=== PATIENT | female | born 1985 | race Caucasian/White ===

== ENCOUNTER 2019-08-27 05:55 | Inpatient (IN) | payer OTHER ==
[2019-08-27 06:45] LABS: BASO % 0.9 % (0-2.0); HEMATOCRIT 29.7 % (32.4-45.2); HEMOGLOBIN 9.7 GM/dL (10.7-15.3); LYMPH % 11.1 % (8-40); MCH 25.6 pg (25.7-33.7); MCHC 32.7 g/dl (32.0-36.0); MEAN CELL VOLUME 78.4 fl (80-96); MEAN PLT VOLUME 8.6 fl (7.5-11.1); MONO % 7.1 % (3.8-10.2); NEUT % 78.9 % (42.8-82.8); PLATELET COUNT 291 K/MM3 (134-434); RBC 3.78 M/mm3 (3.60-5.2); RDW 14.7 % (11.6-15.6); WHITE BLOOD COUNT 12.8 K/mm3 (4.0-10.0)
[2019-08-27 06:48] VITALS: BMI 34.3
[2019-08-27 06:59] LABS: INR 0.87 (0.83-1.09); PROTHROMBIN TIME (PATIENT) 10.3 SEC (9.7-13.0)
[2019-08-27] MEDS ORDERED: ELECTROLYTE-148 SOLN 500 ML IV ONE (07:00)
[2019-08-27] MEDS ORDERED: CITRIC ACID/SODIUM CITRATE 30 ML UNIT-DOSE CUP PO ONE (07:00)
[2019-08-27 07:02] LABS: ACTIVATED PTT 26.3 SECONDS (25.2-36.5)
[2019-08-27 07:21] LABS: BLOOD UREA NITROGEN 7.2 mg/dL (7-18); CALCIUM 8.7 mg/dL (8.5-10.1); CREATININE 0.5 mg/dL (0.55-1.3); POTASSIUM 4.4 mmol/L (3.5-5.1)
[2019-08-27] MEDS ORDERED: ELECTROLYTE-148 SOLN 1,000 ML IV SCH (08:00)
[2019-08-27] MEDS ORDERED: morphine SULFATE/PF 0.5 MG/ML (2cc Syringe - QUVA) ONE (08:18)
[2019-08-27] MEDS ORDERED: IBUPROFEN 600 MG TABLET (FP) PO PRN (08:41)
[2019-08-27] MEDS ORDERED: ONDANSETRON 4 MG/2 ML VIAL IVPUSH PRN (08:41)
[2019-08-27] MEDS ORDERED: ceFAZolin SODIUM 1 GM VIAL ONE (08:49)
[2019-08-27] MEDS ORDERED: PHENYLEPHRINE HCL 10 MG/1 ML SINGLE DOSE VIAL ONE (08:49)
[2019-08-27] MEDS ORDERED: OXYTOCIN 20 UNITS in 0.9% NS 20 UNIT/1,000 ML INFUS.BAG IV ONE (09:39)
[2019-08-27] MEDS: OXYTOCIN 20 UNITS in 0.9% NS 20 UNIT/1,000 ML INFUS.BAG IV SCH (09:45)
--- NOTE | 2019-08-27 09:48 | HP ---
Past Medical History - Admission Chief Complaint: labor. previous section. iupa t 37 weeks. desires sterilizaton History Source: Patient Limitations to Obtaining History: No Limitations - Past Medical History Pulmonary: Yes: Asthma ...: 3 ...Para: 2 ...Term: 1 ...: 1 ...Spon : 0 ...Induced : 0 ...Multiple Gestation: 0 ...LMP: 12/01/18 ... Weeks Gestation by Dates: 38.4 ...EDC by Dates: 09/06/19 ...EDC by Sono: 09/13/19 - Past Surgical History Past Surgical History: Yes: (X1 2009 CS due to poor presentation) Hx Myomectomy: No Hx Transabdominal Cerclage: No - Smoking History Smoking history: Never smoked Have you smoked in the past 12 months: No - Alcohol/Substance Use Hx Alcohol Use: No History of Substance Use: reports: None - Social History Usual Living Arrangement: Yes: With Spouse History of Recent Travel: No Home Medications - Allergies Allergies/Adverse Reactions: Allergies Allergy/AdvReac Type Severity Reaction Status Date / Time No Known Allergies Allergy Verified 08/27/19 06:19 - Home Medications Home Medications: Ambulatory Orders Ferrous Sulfate [Feosol] 325 mg PO DAILY 08/27/19 Vit 93/Iron Fum/Folic [ Formula Tablet] 1 each PO DAILY Review of Systems - Review of Systems Constitutional: reports: No Symptoms Eyes: reports: No Symptoms HENT: reports: No Symptoms Neck: reports: No Symptoms Cardiovascular: reports: No Symptoms Respiratory: reports: No Symptoms Gastrointestinal: reports: Abdominal Pain Genitourinary: reports: No Symptoms Breasts: reports: No Symptoms Reported Musculoskeletal: reports: No Symptoms Integumentary: reports: No Symptoms Neurological: reports: No Symptoms Endocrine: reports: No Symptoms Hematology/Lymphatic: reports: No Symptoms Psychiatric: reports: No Symptoms Physical Exam - Maternity Vital Signs: Vital Signs Temperature 98.9 F 08/27/19 06:33 Pulse Rate 87 08/27/19 06:33 Respiratory Rate 20 08/27/19 06:33 Blood Pressure 124/76 08/27/19 06:33 O2 Sat by Pulse Oximetry (%) Constitutional: Yes: Well Nourished - Abdominal Exam/OB Number of Fetuses: Single Presentation: Vertex Contractions: Yes Category: I Decelerations: None - Vaginal Exam/OB Vaginal Bleediing: No Speculum Exam: No Dilatation (cm): 2-3 Effacement (%): 100 Amniotic Membrane Status: Intact Amniotic Fluid: Yes: Clear Presentation: Vertex/Position - Physical Exam Musculoskeletal: Yes: WNL Extremities: Yes: WNL Edema: Yes Integumentary: Yes: WNL Psychiatric: Yes: Oriented - Labs Lab Results: CBC, BMP 08/27/19 06:15 08/27/19 06:15 Hemorrhage Risk Assessment - Risk Factors Medium Risk Factors: Yes: Prior , uterine surgery,or multiple laparotomies Risk Score: 1 Risk Level: Medium Risk Problem List - Problems (1) labor Code(s): O60.00 - LABOR WITHOUT DELIVERY, UNSPECIFIED TRIMESTER (2) Previous section complicating , antepartum condition or complication Code(s): O34.21 - MATERNAL CARE FOR SCAR FROM PREVIOUS * DO NOT USE * (3) Status post repeat low transverse section Code(s): Z98.89 - OTHER SPECIFIED POSTPROCEDURAL STATES * DO NOT USE * Assessment/Plan previous section IUP 37.4 weeks Cat 1 previous CS labor Plan repeat section bilateral salpingectomy
--- NOTE | 2019-08-27 09:54 | OP ---
Operative Note - Note: Operative Date: 08/27/19 Pre-Operative Diagnosis: Previous section. iup at 37.5 week. voluntary sterilization Operation: Repeat sECTION. Bilateral salpingectomy Findings: Live female Post-Operative Diagnosis: Same as Pre-op Surgeon: Iman Chavez Food And Drug Inspector: Juana Aguiar Anesthesia: Spinal Estimated Blood Loss (mls): 500 Operative Report Dictated: Yes
[2019-08-27] MEDS ORDERED: IBUPROFEN 800 MG/8 ML IJ IVPB ONE (10:46)
[2019-08-27] MEDS: IBUPROFEN 800 MG/8 ML IJ IVPB PRN ×2 (10:56→21:47)
[2019-08-27] MEDS ORDERED: MEPERIDINE HCL 50 MG/ML VIAL ONE (11:58)
[2019-08-27] MEDS ORDERED: PROMETHAZINE HCL 25 MG/1 ML VIAL ONE (11:58)
[2019-08-27] MEDS ORDERED: MEPERIDINE HCL 50 MG/ML VIAL IM PRN (12:17)
[2019-08-27] MEDS ORDERED: PROMETHAZINE HCL 25 MG/1 ML VIAL IM PRN (12:18)
[2019-08-27] MEDS ORDERED: METHYLERGONOVINE MALEATE 0.2 MG/1 ML AMP IM PRN (20:30)
[2019-08-28] MEDS ORDERED: OXYTOCIN 30 UNITS in 0.9% NS 30 UNIT/500 ML INFUS.BAG IVPB ONE (02:35)
[2019-08-28] MEDS: OXYTOCIN 20 UNITS in 0.9% NS 20 UNIT/1,000 ML INFUS.BAG IV SCH ×2 (02:37→13:18)
[2019-08-28] MEDS: IBUPROFEN 600 MG TABLET (FP) PO PRN ×4 (06:26→21:37)
[2019-08-28] MEDS: ACETAMINOPHEN 325 MG TABLET (FP) PO PRN ×4 (06:26→21:36)
[2019-08-28 08:05] LABS: BASO % 0.6 % (0-2.0); EOS % 0.6 % (0-4.5); HEMATOCRIT 25.8 % (32.4-45.2); HEMOGLOBIN 8.5 GM/dL (10.7-15.3); LYMPH % 5.6 % (8-40); MCH 25.8 pg (25.7-33.7); MCHC 32.9 g/dl (32.0-36.0); MEAN CELL VOLUME 78.6 fl (80-96); MEAN PLT VOLUME 8.2 fl (7.5-11.1); MONO % 5.4 % (3.8-10.2); NEUT % 87.8 % (42.8-82.8); PLATELET COUNT 240 K/MM3 (134-434); RBC 3.28 M/mm3 (3.60-5.2); RDW 14.4 % (11.6-15.6)
[2019-08-28] MEDS ORDERED: DIPHTH,PERTUSS(ACELL),TET 0.5 ML DISP.SYRIN IM ONE (10:00)
--- NOTE | 2019-08-28 11:56 | PN ---
Progress Note (SOAP) - Subjective Chief Complaint: Pt doing well - Current Medications Current Medications: Active Medications Acetaminophen (Tylenol -) 650 mg PO Q4H PRN PRN Reason: PAIN LEVEL 1-5 Last Admin: 08/28/19 11:12 Dose: 650 mg Bisacodyl (Dulcolax Suppository -) 10 mg RC PRN PRN PRN Reason: CONSTIPATION Diphenhydramine HCl (Benadryl Injection -) 25 mg IVPUSH Q4H PRN PRN Reason: Pruritis Oxytocin/Sodium Chloride (Normal Saline+20 Units Oxytocin -) 20 unit in 1,000 mls @ 125 mls/hr IV ASDIR RALF Last Admin: 08/28/19 02:37 Dose: 125 mls/hr Ibuprofen (Caldolor Injection -) 800 mg IVPB Q8H PRN PRN Reason: PAIN SCALE 5-10 Last Admin: 08/27/19 21:47 Dose: 800 mg Ibuprofen (Motrin -) 600 mg PO Q4H PRN PRN Reason: PAIN LEVEL 1 - 3 Last Admin: 08/28/19 11:12 Dose: 600 mg Meperidine HCl (Demerol Vial) 75 mg IM Q4H PRN PRN Reason: PAIN SCALE > 5 Last Admin: 08/27/19 12:15 Dose: 75 mg Methylergonovine Maleate (Methergine Injection -) 0.2 mg IM Q4H PRN PRN Reason: Excessive Bleeding (L&D) Ondansetron HCl (Zofran Injection) 4 mg IVPUSH Q4H PRN PRN Reason: NAUSEA Oxycodone HCl (Roxicodone -) 5 mg PO Q4H PRN PRN Reason: PAIN LEVEL 4 - 6 Oxycodone HCl (Roxicodone -) 10 mg PO Q4H PRN PRN Reason: PAIN LEVEL 7 - 10 Promethazine HCl (Phenergan Injection -) 25 mg IM Q4H PRN PRN Reason: PAIN LEVEL > 5 WITH DEMEROL Last Admin: 08/27/19 12:15 Dose: 25 mg Simethicone (Mylicon -) 80 mg PO Q4H PRN PRN Reason: GAS - Objective Vital Signs: Vital Signs Temperature 98.3 F 08/28/19 10:00 Pulse Rate 88 08/28/19 10:00 Respiratory Rate 18 08/28/19 10:00 Blood Pressure 115/71 08/28/19 10:00 O2 Sat by Pulse Oximetry (%) 100 08/27/19 11:00 Constitutional: Yes: Well Nourished, No Distress Labs Lab Results: CBC, BMP 08/28/19 07:40 08/27/19 06:15 Problem List - Problems (1) labor Code(s): O60.00 - LABOR WITHOUT DELIVERY, UNSPECIFIED TRIMESTER (2) Previous section complicating , antepartum condition or complication Code(s): O34.21 - MATERNAL CARE FOR SCAR FROM PREVIOUS * DO NOT USE * (3) Status post repeat low transverse section Code(s): Z98.89 - OTHER SPECIFIED POSTPROCEDURAL STATES * DO NOT USE * Assessment/Plan previous section SP Repeat CS Bilateral salpingectomy Plan continue present management
--- NOTE | 2019-08-28 14:32 | PN ---
Progress Note (short form) - Note Progress Note: 34F POD#1 for under spinal anesthesia with intrathecal duramorph. Pt. doing well today. No anesthesia related complications. Continue management per primary team.
[2019-08-28] MEDS: SIMETHICONE 80 MG TAB.CHEW (FP) PO PRN ×2 (17:41→21:37)
[2019-08-28] MEDS ORDERED: oxyCODONE HCL 5 MG TABLET PO PRN (20:30)
[2019-08-28] MEDS ORDERED: BISACODYL 10 MG SUPP.RECT RC PRN (20:30)
[2019-08-28] MEDS: oxyCODONE HCL 5 MG TABLET PO PRN (23:45)
[2019-08-29] MEDS: SIMETHICONE 80 MG TAB.CHEW (FP) PO PRN ×2 (06:08→22:20)
[2019-08-29] MEDS: IBUPROFEN 600 MG TABLET (FP) PO PRN ×4 (06:08→22:19)
[2019-08-29] MEDS: ACETAMINOPHEN 325 MG TABLET (FP) PO PRN ×3 (06:09→18:05)
[2019-08-29] MEDS: oxyCODONE HCL 5 MG TABLET PO PRN ×2 (16:02→22:19)
[2019-08-29 21:14] VITALS: PULSE 84
[2019-08-29] MEDS ORDERED: SENNOSIDES/DOCUSATE COMBO (SENNA PLUS) TABLET (UD) PO SCH (22:00)
[2019-08-30] MEDS: SIMETHICONE 80 MG TAB.CHEW (FP) PO PRN ×2 (03:02→09:10)
[2019-08-30] MEDS: oxyCODONE HCL 5 MG TABLET PO PRN ×2 (03:03→09:09)
[2019-08-30] MEDS: IBUPROFEN 600 MG TABLET (FP) PO PRN ×3 (03:04→12:47)
[2019-08-30 08:11] LABS: BASO % 0.6 % (0-2.0); EOS % 3.4 % (0-4.5); HEMATOCRIT 23.2 % (32.4-45.2); HEMOGLOBIN 7.7 GM/dL (10.7-15.3); MCHC 33.1 g/dl (32.0-36.0); MEAN CELL VOLUME 78.4 fl (80-96); MEAN PLT VOLUME 7.7 fl (7.5-11.1); MONO % 7.2 % (3.8-10.2); NEUT % 75.8 % (42.8-82.8); PLATELET COUNT 246 K/MM3 (134-434); RBC 2.96 M/mm3 (3.60-5.2); RDW 14.9 % (11.6-15.6); WHITE BLOOD COUNT 8.1 K/mm3 (4.0-10.0)
[2019-08-30 10:05] VITALS: BP 122/67; TEMP 98
[2019-08-30] MEDS: ACETAMINOPHEN 325 MG TABLET (FP) PO PRN (11:36)
--- NOTE | 2019-09-06 15:07 | PATH ---
Surgical Pathology Report Patient Name: EMNG ERNANDEZ Med. Rec. #: [id number] /Age/Gender: 1985 (Age: 34) / F Account: [id number] Location: [facility] OBS/S[employer] Taken: 08/27/2019 Received: 08/29/2019 Reported: 09/06/2019 Physicians: Iman Chavez M.D. Specimen(s) Received A: PLACENTA B: RIGHT FALLOPIAN TUBE C: LEFT FALLOPIAN TUBE Clinical History , x2 Asthma Final Diagnosis A. PLACENTA, SECTION: 529 G THIRD TRIMESTER PLACENTA WITH TRIVASCULAR UMBILICAL CORD AND UNREMARKABLE PLACENTAL MEMBRANES. B. FALLOPIAN TUBE, LEFT, SALPINGECTOMY: UNREMARKABLE FALLOPIAN TUBE (INCLUDING FIMBRIATED END AND FULL LUMINAL PORTION). C. FALLOPIAN TUBE, RIGHT, SALPINGECTOMY: UNREMARKABLE FALLOPIAN TUBE (INCLUDING FIMBRIATED END AND FULL LUMINAL PORTION). Electronically Signed Christie Amato M.D. Gross Description A. The specimen is received fresh labeled placenta and is a 529 gram, 12.5 x 11.5 x 5.0 cm. placenta with attached membranes and umbilical cord. The attached membranes are vegas, translucent with focal opacities and insert marginally. The umbilical cord measures 15 cm. in length and averages 1.2 cm. in diameter. The cord inserts eccentrically, 2.5 cm. to the nearest margin. No true knots or strictures are identified. Cut surface of the umbilical cord reveals 3 vessels. The surface is virgen-blue with minimal fibrin deposition and appropriate caliber vessels. The maternal surface is red-brown with focal defects. Sectioning reveals red-brown, spongy parenchyma. No lesions are identified. Conduit Cleaner sections are submitted in three cassettes as follows: 1- membrane rolls and umbilical cord; 2-3- full thickness sections of placenta. B. Received in formalin labeled "right fallopian tube," is a 6.5 cm in length fimbriated fallopian tube. The outer surface is vegas-multani and smooth. Sectioning reveals an unremarkable lumen. Conduit Cleaner sections are submitted in 2 cassettes as follows: 1-fimbria; 2-cross sections of fallopian tube. C. Received in formalin labeled "left fallopian tube," is a 7 cm in length fimbriated fallopian tube. The outer surface is virgen purple and smooth. Sectioning reveals an unremarkable lumen. Conduit Cleaner sections are submitted in 2 cassettes as follows: 1-fimbria; 2-cross sections of fallopian tube. 09/02/2019 [facility]09/02/2019
--- NOTE | 2019-09-08 14:09 | OP ---
DATE OF OPERATION: 08/27/2019 PREOPERATIVE DIAGNOSIS: Previous section, intrauterine at 37.6 weeks, active labor, voluntary sterilization. OPERATION: Repeat section and bilateral salpingectomy. POSTOPERATIVE DIAGNOSIS: Previous section, intrauterine at 37.6 weeks, active labor, voluntary sterilization. SURGEON: Iman Chavez MD FINDINGS: Live female delivered in OT position. ADULT DAYCARE COORDINATOR: Juana Aguiar MD ANESTHESIA: Spinal. ESTIMATED BLOOD LOSS: 500 mL. DESCRIPTION OF PROCEDURE: Patient was taken to the operating room, placed in supine position, prepped and draped in the usual sterile fashion. A time-out was performed in accordance with hospital regulation. Pfannenstiel skin incision was made with a scalpel. Cautery was then used to go through the patient's previous scar. Cautery was then used to go through layers of the abdominal wall to the level of the fascia. Fascia was cut in the midline, and cautery was then used to open the fascia in smiling fashion. Kochers were then used to bluntly and sharply dissect the rectus muscle off the fascia. Muscle was split in the midline, and peritoneal cavity was then entered and carried up and down. Bladder retractor was then placed. Vesicouterine reflection was then entered and carried down and bladder was replaced. Scalpel was then used to make a low transverse uterine incision. Incision was carried upward using bandage scissors. A live female was delivered in OT position. Nose and mouth suction performed. Shoulders were delivered without difficulty. Cord was clamped and cut. Cord blood obtained. Placenta was manually extracted from the uterus. Cord pH obtained. was handed to process tech. Uterus was exteriorized. Placenta was manually extracted from the uterus. Tubes and ovaries noted to be normal. Uterine incision then closed using 0 Biosyn suture, 1st layer continuous and locking, 2nd layer imbricating the 1st layer. Babcocks were then used to grasp the tubes bilaterally, and coagulation and cutting of the tube was then done. These were handed off to Pathology. After hemostasis was achieved, the uterus was interiorized. Abdominal cavity cleaned with clean lap pads. Abdominal sweep done. Peritoneal cavity was then closed using 0 Biosyn suture. Fascia was then closed using 0 Vicryl suture in 2 parts. Skin was then closed using 3-0 Biosyn in subcuticular fashion. Wound was washed and dressed. Patient tolerated procedure well. Estimated blood loss 500 mL. Angelito [id number]
== END 2019-08-30 13:20 | disposition home or self-care (01) | DRG 540 ==
LOC: JLDR 05:55 → J3W 11:35
PROVIDERS: ADMIT Obstetrics & Gynecology; ATTEND Obstetrics & Gynecology
PROC: 10D00Z1 Extraction of Products of Conception, Low, Open Approach (ICD-10-PCS; principal; 2019-08-27)
PROC: 0UB70ZZ Excision of Bilateral Fallopian Tubes, Open Approach (ICD-10-PCS; 2019-08-27)
DX: O34.219 Maternal care for unspecified type scar from previous cesarean delivery (principal); Z3A.37 37 weeks gestation of pregnancy; Z37.0 Single live birth; Z30.2 Encounter for sterilization
CPT/HCPCS: 36415; 36600; 80048; 82803; 85025; 85610; 85730; 86593; 86850; 86900; 86901; 87389; 88302-TC; 88307-TC; 90715; J2175